=== PATIENT | male | born 1950 | race Caucasian/White ===

== ENCOUNTER 2016-07-24 00:34 | Emergency (ER) | payer MEDICARE, OTHER ==
[~2016-07-24] VITALS: Ht 182.9 cm; Wt 95.5 kg
[~2016-07-24 00:34] MED LIST: ASPI-973 PO; EZET10TA PO; NITR0.4T SL; OXYC5TAB72 PO; POLY17PO6 PO
[2016-07-24 00:37] VITALS: BP 173/99; PULSE 65; RESP 16; O2SAT 98
--- NOTE | 2016-07-24 00:53 | ED.REPORT ---
HPI-Dental/Mouth Prob Date of Service Jul 24, 2016 ED Provider: Dr. River Kim M.D. A 65 year old male with a medical history including CAD, MO, hypertension, GERD , and renal cell cancer s/p right nephrectomy presents to the ED with upper left tooth pain onset this evening. The pain has spread into his lower jaw. The patient denies dysphagia or other symptoms. He took 800mg of Ibuprofen at onset. The patient was placed on Cipro and Flagyl one week ago for diverticulitis. Nursing Notes Stated Complaint: DENTAL PAIN Chief Complaint: Dental Nursing Notes Reviewed: Yes Allergies: Coded Allergies: niacin (Unverified Allergy, Severe, HIVES,SKIN RASH, 03/27/15) Kmoxujk-Heh-Ems Reductase Inhibitor (Unverified Allergy, Unknown, UNKNIOWN , 03/27/15) hydromorphone (Unverified Allergy, Unknown, UNKNOWN, 03/27/15) ramipril (Unverified Allergy, Unknown, UNKNOWN, 03/27/15) acetaminophen (Unverified Adverse Reaction, Severe, GRINDS TEETH, 03/27/15) hydrocodone (Unverified Adverse Reaction, Severe, GRINDS TEETH, 03/27/15) hydroxyprogesterone (Unverified Adverse Reaction, Severe, HALLUCINATIONS, 03/27/15) Scheduled Amoxicillin (Amoxicillin) 500 Mg Tablet 500 MG PO TID Aspirin (Aspirin) 81 Mg Tablet 81 MG PO DAILY Ezetimibe (Zetia) 10 Mg Tablet 10 MG PO DAILY Polyethylene Glycol 3350 (Miralax) 17 Gm Powd.pack 17 GM PO DAILY Scheduled PRN Ibuprofen (Ibuprofen) 600 Mg Tablet 600 MG PO QID PRN PRN For Pain Nitroglycerin SL (Nitrostat) 0.4 Mg Tab.subl 0.4 MG SL Q5MIN PRN PRN ANGINA Tramadol (Tramadol) 50 Mg Tablet 100 MG PO Q6H PRN PRN For Pain oxyCODONE (oxyCODONE) 5 Mg Tablet 5 MG PO Q4H PRN PRN For Moderate Pain General Time Seen by MD: 00:53 Chief Complaint Tooth pain Hx Obtained From: Patient Arrived By: Walk-in Onset Occurred: 5 - 8 hours ago Symptom Duration: Since onset Location: : Tooth upper L bicuspid Quality: Painful Severity: Current: Moderate Severity: Maximum: Moderate Associated with: Denies: Fever Pertinent Negative: Relieved by nothing Recent Healthcare: No recent doctor visit Past Medical History Past Medical History Hx MO CAD Hypertension Heart Murmur GERD Mccallum's esophagus Right renal cell cancer Inguinal hernia Osteoarthritis Diverticulitis Past Surgical History Cholecystectomy Laparoscopic right nephrecomy Knee scopes CABG 2000 Right inguinal hernia repair with mesh 2014 Smoking History Current Every Day Smoker Ambulatory Status Independent Review of Systems Review of Systems Note: + Left-sided jaw pain Constitutional: Denies: Fever Ears / Nose / Throat: Reports: Toothache (Upper left ) Respiratory: Denies: Non-productive cough, Shortness of breath GI: Denies: Constipation, Diarrhea, Dysphagia, Vomiting Complete sys rev & neg: except as marked. Physical Exam Initial Vital Signs Vital Signs (First) Date Time Temp Pulse Resp B/P Pulse Ox O2 Delivery O2 Flow Rate FiO2 07/24/16 00:37 36.4 65 16 173/99 98 Room Air Initial VS: Reviewed Head / Eyes: Atraumatic, Normocephalic Respiratory: No respiratory distress Skin: Warm, Dry, No cyanosis Neurologic: Alert, Oriented, Nonfocal Psychiatric: Mood/affect normal, Behavior normal, Normal thought content ENT: Airway patent, Mucous membranes moist, Pharynx NL, No peritonsillar abscess Tooth #12 missing Tooth #13 has a full crown with the base eroded and decay into dentin of tooth Tongue normal No gingival sulcus swelling Neck: Supple, No adenopathy No flunctuance General/Constitutional: Awake, Alert, No acute distress Re-Eval/Medical Decision Med Decision/Clinical Course 65-year-old presents with dental pain with obvious decay underlying on tooth #19. He is begun with amoxicillin, as Flagyl, which she is currently taking, is probably inadequate for oral anaerobes. Ibuprofen, tramadol, and follow-up with dentist [facility]. Source of Hx: Old records Re-Evaluation/Progress : Time of Eval: 01:15 Patient Status: Condition improved Re-Evaluation/Progress Note: Discussed with patient physical exam findings, diagnosis, and plan for discharge. Follow-up and return to the ER instructions given. Patient agrees with plan for care and all questions were addressed. Counseled Regarding: Diagnosis, Need for follow-up, When/why to return to ED Discharge & Departure Shift Change Sign-Out Response to Therapy: Improved Primary Impression: Toothache Additional Impression: Dental abscess Disposition: Home Discharge Condition All VS Reviewed: Yes Condition: Improved Patient Instructions: Dental Abscess (ED) Additional Instructions: Continue ibuprofen 800 mg three times daily. You may add tramadol two tablets up to four times daily. Never exceed eight tablets of tramadol daily. Add amoxicillin one tablet three times daily. See your dentist as soon as possible. Return if you develop fever, difficulty swallowing, or other new symptoms of concern. Referrals: Dada Tapia MD (PCP) Scribe Attestation Portions of this note were transcribed by Yvette Landis. I, Dr. Kim, personally performed the history, physical exam, and medical decision-making; I reviewed and confirmed the accuracy of the information in the transcribed note. Signed by: Caesar Gong, 07/24/2016, 01:25 copies to: Dada Tapia MD, Christopher W MD Jul 24, 2016 00:53 YVETTE LANDIS Jul 24, 2016 01:09
[2016-07-24] MEDS ORDERED: Ketorolac 30 mg/mL 2 mL Inj IM ONE (01:00)
[2016-07-24] MEDS ORDERED: AMOX500T2 PO (01:02)
[2016-07-24] MEDS ORDERED: TRAM50TA2 PO (01:03)
[2016-07-24] MEDS ORDERED: IBUP-1827 PO (01:12)
[2016-07-24 01:30] VITALS: BP 165/90; PULSE 62; RESP 18; O2SAT 99
== END 2016-07-24 01:30 | disposition home or self-care (01) ==
LOC: SED 00:34
DX: K08.89 Other specified disorders of teeth and supporting structures (principal); K04.7 Periapical abscess without sinus; I25.10 Atherosclerotic heart disease of native coronary artery without angina pectoris; I25.2 Old myocardial infarction; K21.9 Gastro-esophageal reflux disease without esophagitis; F17.200 Nicotine dependence, unspecified, uncomplicated; Z79.82 Long term (current) use of aspirin; Z85.528 Personal history of other malignant neoplasm of kidney; Z88.5 Allergy status to narcotic agent; Z88.8 Allergy status to other drugs, medicaments and biological substances
CPT/HCPCS: 96372; 99283; J1885

== ENCOUNTER 2016-09-22 08:18 | Day surgery (SDC) | payer OTHER ==
[~2016-09-22] VITALS: Ht 182.9 cm; Wt 99.0 kg
[~2016-09-22 08:18] MED LIST changes: +Dexamethasone 4 mg/mL Inj IVPUSH PRN; +EPHEDrine Sulfate 50 mg/mL Inj IVPUSH PRN; +HYDROmorphone 1 mg/mL Inj IVPUSH PRN; +Labetalol 5 mg/mL 4 mL Inj IV PRN; +Lactated Ringer's 1,000 ML IV ONE; +Lactated Ringer's 1,000 ML IV SCH; +Lactated Ringer's 500 ML IV PRN; +MetoCLOpramide 5 mg/mL 2 mL Inj IVPUSH PRN; -NITR0.4T SL; -OXYC5TAB72 PO; +Ondansetron 2 mg/mL 2 mL Inj IVPUSH PRN; -POLY17PO6 PO; +Phenylephrine 10,000 mCg/mL Inj IVPUSH PRN; +fentaNYL-PF 50 mCg/mL 2 mL Inj IVPUSH PRN; +hydrALAZINE 20 mg/mL Inj IVPUSH PRN
[2016-09-22] MEDS ORDERED: Propofol 10,000 mCg/mL 20 mL Inj ONE (08:19)
[2016-09-22] MEDS ORDERED: fentaNYL-PF 50 mCg/mL 2 mL Inj ONE (08:19)
[2016-09-22] MEDS ORDERED: Ketamine 10 mg/mL 20 mL Inj ONE (08:19)
[2016-09-22 08:52] VITALS: BP 127/80; PULSE 65; RESP 12; O2SAT 98
[2016-09-22] MEDS ORDERED: Lactated Ringer's 1,000 ML IV ONE (09:38)
--- NOTE | 2016-09-22 09:56 | PCM.HPANE ---
Patient Data Date of Service: September 22, 2016 Surgeon Admitting Provider: Attending Provider:Rosa Armstrong MD Primary Care Physician:Dada Tapia MD Other Provider:Filemon Matthews Anesthesia Reason for Visit Chronic Diarrha, Weight Loss Ht/WT & BMI Height (Feet): 6 Height (Inches): 0 Weight (Kilograms): 99 Body Mass Index 29.00 Allergies Coded Allergies: niacin (Verified Allergy, Mild, hives, 09/21/16) hydromorphone (Verified Allergy, Unknown, 09/22/16) Past Anesthesia History Anesthesia History: Denies:: Anesthesia Reactions, Fam Anesthesia Reaction, Fam Malignant Hypertherm, Malignant Hyperthermia Diabetes History Hx Diabetes?: No MRSA MRSA: No Medications Blood Thinner: Aspirin Discontinued Reported Medications Ezetimibe (Zetia)10 Mg [id number] Mg PO DAILY 30 Days Ref 0 03/27/15 Aspirin 81 Mg Pywltv45 Mg PO DAILY Ref 0 03/27/15 Nitroglycerin SL (Nitrostat)0.4 Mg Tab.subl0.4 Mg SL Q5MIN PRN ANGINA #1 BOTTLE 03/27/15 Discontinued Scripts Ibuprofen 600 Mg [id number] Mg PO QID PRN For Pain #40 TABLET Prov:River Kim MD 07/24/16 Tramadol 50 Mg [id number] Mg PO Q6H PRN For Pain #20 TABLET Prov:River Kim MD 07/24/16 Amoxicillin 500 Mg [id number] Mg PO TID #60 TABLET Prov:River Kim MD 07/24/16 Polyethylene Glycol 3350 (Miralax)17 Gm Powd.pack17 Gm PO DAILY #30 Prov:Jesus Calderón MD 03/31/15 oxyCODONE 5 Mg Tablet5 Mg PO Q4H PRN For Moderate Pain #30 TABLET Prov:Jesus Calderón MD 03/31/15 History History of ENT Problems?: Yes HEENT History: Denies:: Abnormal Airway Cataracts Difficult Intubation Dysphagia Glaucoma Hearing Problem Sinus Problem TMJ Denture Type: None Teeth Condition: Missing Teeth Hx of Heart Problems?: Yes Cardiovascular History: Positive for:: Cardiac Surgery (CABG AROUND 1999) Chest Pain (HX NE) Denies:: Congestive Heart Failure Heart Murmur (ECHO 12/2003) Hypertension Irregular Heartbeat Hx of Respiratory Problem?: No Respiratory History: Denies:: Tuberculosis Use of C-PAP Machine Hx Neurologic Problems?: No Neurological History: Denies:: CVA Hx of GI Problems?: Yes Hx of Problems?: Yes Male Hx: Positive for:: Prostate Problems (BPH) Denies:: Scrotal Mass Testicular Surgery Skin History: Denies:: History Skin Disorders? Pressure Ulcers Hx Musculoskeletal Problems?: Yes Musculoskeletal History: Positive for:: Musculoskeletal Trauma (S/P MULTIPLE KNEE SCOPES) Hx of Psycho/Social Problems?: No Hx Surgeries?: Yes (CABG X4, CHOLY, KIDNEY RESECTION, BILAT KNEES, ) Hx Any Other Health Problems?: No Other History: Positive for:: Cancer (RT RENAL CELL) Hospitalization (CARDIAC) Thyroid Disease (NO MEDS) Denies:: Endocrine Disease History Blood Transfusions: Denies:: Blood Transfusions Hx Diabetes: No Hx Alcohol Use: Yes (3-4/WEEK)Hx Substance Use: No Smoking Status: Current Every Day Smoker Have You Smoked inLast 12 mo: Yes (CIGARS) Stop/Bang Treated for Sleep Apnea?: No S-Snoring: Do You Snore Loudly: Yes T-Tired: feel tired, fatigued: No O-Obsered: Observed not breath: No P-Blood Pressure: treated: No B- Body Mass Index > 35 kg/m2: No A- Age over 50: Yes N- Neck Large Circumference: No G- Gender Male: Yes NICK Total Score: 3 NICK Risk Assessment: Low Risk, <3 Yes Risk Assessment Category Category 1A: Patient has history of documented sleep apnea, and HAS NOT received any narcotic, sedative or anesthesia administration during this stay. Category 1B: Patient has history of documented sleep apnea, and HAS received any narcotic , sedative or anesthesia administration during this stay Category 2: Patient has SUSPECTED Obstructive Sleep Apnea, and HAS received any narcotic , sedative or anesthesia administration during this stay. Category 3: Patient has SUSPECTED Obstructive Sleep Apnea and HAS NOT received narcotic, sedative or anesthesia administration during this stay. Category 4: Outpatient in Procedural Areas with known sleep apnea or who screen positive for High Risk via the STOP/BANG questionnaire. Exam Exam Vital Signs Vital Signs Date Time Temp Pulse Resp B/P Pulse Ox O2 Delivery O2 Flow Rate FiO2 09/22/16 08:52 36.4 65 12 127/80 98 Room Air General Appearance: Alert, Oriented X3, Cooperative, No Acute Distress HEENT/AIRWAY: MP 2 Lungs: Clear to Auscultation, Normal Air Movement Heart: Exam Unremarkable, Regular Rate/Rhythm, No Murmurs/Rubs/Gallops Meds/Labs/Diagnostics Admission Meds Current Medications Lactated Ringer's (Lr) 1,000 ml @ ud STK-MED ONCE IV Last administered on t 09:38; Start 09/22/16 at 09:38; Stop 09/22/16 at 09:39; Status DC Plan Impression Patient chart reviewed, patient interviewed and anesthestic plan with risks, benefits, and alternatives discussed, and informed consent obtained. ASA Physical Status: ASA2 Mod Systemic Disease Anesthetic Plan: GA Bene/Risks/Altern/Consents: Yes HP Complete Prior to Induction: Yes Zen Amador MD September 22, 2016 09:56
[2016-09-22 10:48] VITALS: BP 77/56; PULSE 95; RESP 16; O2SAT 95
[2016-09-22 10:51] VITALS: BP 86/45; PULSE 57; RESP 16; O2SAT 94
[2016-09-22 11:05] VITALS: BP 128/67; PULSE 53; RESP 16; O2SAT 98
[2016-09-22 11:07] VITALS: BP 133/80; PULSE 56; RESP 16; O2SAT 100
--- NOTE | 2016-09-22 11:10 | ENDO ---
[address] [address] ENDOSCOPY PROCEDURE PATIENT: JERMAINE TOMLINSON : 1950 MR#: [id number] ADMIT: 09/22/2016 JOB ID: [id number] DATE: 09/22/2016 PROCEDURE: Esophagogastroduodenoscopy. INDICATION: Weight loss and chronic diarrhea. The patient's ASA classification, Mallampati score and medications as per anesthesia note. INSTRUMENT USED: GIF H 180 J. PROCEDURE DETAILS: After informed consent was obtained, the patient was brought into the GI suite, where he was placed on oxygen via nasal cannula and monitored with continuous pulse oximeter, telemetry and blood pressure monitoring. A time-out was performed and then he was placed in the left lateral decubitus position and medications were administered for sedation. A bite block was placed. The standard EGD scope was inserted through the bite block and advanced under direct visualization to the second portion of the duodenum without difficulty. FINDINGS: 1. Normal-appearing duodenal bulb, first and second portion. Multiple random biopsies were obtained. 2. Normal appearing pylorus. In the antrum and body of the stomach, the mucosa had a mildly erythematous appearance. Multiple random biopsies were obtained. 3. Retroflexed views in the gastric body revealed a normal appearing cardia and fundus. 4. The GE junction coincided with the top of the gastric folds at 44 cm. There was salmon-colored mucosa extending up to 41 cm from the GE junction. Several tongues. Multiple biopsies were obtained. The remainder of the esophagus otherwise unremarkable. IMPRESSION: 1. Mild gastritis. 2. C0 M3 Mccallum esophagus. RECOMMENDATIONS: 1. Start PPI. 2. Smoking cessation. 3. I recommend decreasing alcohol intake. COMPLICATIONS: None. ESTIMATED BLOOD LOSS: Less than 5 mL. PROCEDURE PERFORMED: Colonoscopy. INDICATION: Chronic diarrhea and weight loss. Please see above for ASA classification, Mallampati score and medications. INSTRUMENT USED: PCF H 180 AL. PREPARATION QUALITY: Was fair. PROCEDURE DETAILS: After completion of the EGD examination, the patient was turned and then a digital rectal examination was performed with palpation of the prostate was unremarkable. The colonoscope was then inserted into the rectum and advanced under direct visualization to the terminal ileum which was identified by the presence of the ileocecal valve and villous appearing mucosa of the terminal ileum. Once the terminal ileum was reached, the colonoscope was withdrawn back into the rectum and mucosa and lumen were examined. In the rectum, retroflexion was performed. Following retroflexion, remaining air in the rectum was suctioned, and the procedure was completed. FINDINGS: 1. Normal appearing terminal ileum. Multiple random biopsies were obtained. 2. In the descending colon, there was an approximately 5 mm sessile polyp that was removed with a cold snare. 3. In the rectum there was an approximately 7 mm sessile polyp that was removed with a hot snare. 4. Multiple random biopsies were obtained throughout the colon. 5. The colon mucosa appeared normal from rectum to cecum. IMPRESSION: 1. Descending colon polyp. 2. Rectal polyp. Otherwise normal examination from rectum to terminal ileum. RECOMMENDATIONS: 1. Await biopsy results. 2. Avoid nonsteroidal anti-inflammatory drugs and anticoagulants for 72 hours. 3. Followup in GI clinic. COMPLICATIONS: None. ESTIMATED BLOOD LOSS: Less than 5 mL.
--- NOTE | 2016-09-22 14:01 | PCM.ANEP1 ---
Post Anesthesia Phase 1 PACU Phase 1 Assessment Date of Service: September 22, 2016 Vital Signs Vital Signs Date Time Temp Pulse Resp B/P Pulse Ox O2 Delivery O2 Flow Rate FiO2 09/22/16 11:07 56 16 133/80 100 Room Air 09/22/16 11:05 53 16 128/67 98 Room Air 09/22/16 10:51 57 16 86/45 94 Room Air 09/22/16 10:48 35.8 95 16 77/56 95 Room Air 09/22/16 08:52 36.4 65 12 127/80 98 Room Air Anesthetic Administered: GA Level of Alertness: Awake, talking Pain: No Nausea or Vomiting: No Cardiovascular Function and Hy: Yes Oxygen Delivery: Room Air Lungs: Clear to Auscultation, Normal Air Movement Complications: No Zen Amador MD September 22, 2016 14:01
--- NOTE | 2016-09-24 17:25 | PATH ---
SURGICAL PATHOLOGY Attending Physician:Tia Howard CASE STATUS: Signed Out PATIENT NAME: JERMAINE TOMLINSON PID: [id number] : 1950 DATE COLLECTED:09/22/2016 15:11 SPECIMEN: 1: Duodenum, Biopsy 2: Stomach, Polyp, Biopsy 3: Esophagus, Biopsy 4: Ileum, Biopsy 5: Colon, Biopsy 6: Colon, Biopsy 7: Rectum, Biopsy CLINICAL HISTORY: 1. DUODENAL BX 2. RANDOM GASTRIC BX 3. DISTAL ESOPHAGUS BX 4. TI BX 5. RANDOM COLON BX 6. DESCENDING COLON POLYP 7. RECTAL POLYP X1 FINAL DIAGNOSIS: 1. Duodenum, Biopsy: Duodenal mucosa with no diagnostic abnormality. Negative for active inflammation, features of sprue, dysplasia, or malignancy. 2. Random Gastric Biopsy: Portions of gastric body-type mucosa with no diagnostic abnormality. Negative for H. pylori organisms by H&E stain. Negative for dysplasia and malignancy. 3. Distal Esophageal Biopsy: Squamocolumnar junctional mucosa with a small focus of specialized intestinal metaplasia. Negative for dysplasia and malignancy. 4. Terminal Ileum, Biopsy: Small intestinal mucosa with no diagnostic abnormality. Negative for active inflammation, dysplasia, and malignancy. 5. Random Colon Biopsies: Histologic features of lymphocytic colitis. Please see comment. 6. Descending Colon, Polyp, Biopsy: Tubular adenoma; negative for high-grade dysplasia. 7. Rectum, Polyp, Biopsy: Superficial portions of colorectal mucosa histologic features suggestive of lymphocytic colitis. Please see comment. ICD10: K52.89 NOTE: E and G. Sections demonstrate superficial portions of colorectal mucosa with increased intraepithelial lymphocytes (up to approximately 20 lymphocytes / 100 epithelial cells). There is no evidence of active inflammation, dysplasia, or malignancy. GROSS DESCRIPTION: The specimen is received in seven formalin filled containers labeled with the patient's name. 1). The specimen is sublabeled "duodenal" and consists of 3 portions of tissue which aggregate to 0.2 x 0.2 x 0.2 CM. The specimen is entirely submitted in cassette 1A. 2). The specimen is sublabeled "gastric" and consists of 4 portions of tissue which aggregate to 0.4 x 0.4 x 0.2 CM. The specimen is entirely submitted in cassette 2A. 3). The specimen is sublabeled "distal esophageal" and consists of multiple portions of tissue which aggregate to 0.4 x 0.4 x 0.3 CM. The specimen is entirely submitted in cassette 3A. 4). The specimen is sublabeled " TI " and consists of portions of tissue which aggregate to 0.3 x 0.3 x 0.2 CM. The specimen is entirely submitted in cassette 4A. 5). The specimen is sublabeled "random colon" and consists of multiple portions of tissue which aggregate to 0.4 x 0.4 x 0.3 CM. The specimen is entirely submitted in cassette 5A. 6). The specimen is sublabeled "descending colon polyp" and consists of a 0.6 x 0.5 x 0.4 CM portion of tissue which is entirely submitted in cassette 6A. 7). The specimen is sublabeled "rectal polyp" and consists of 4 portions of tissue which aggregate to 0.3 x 0.3 x 0.2 CM. The specimen is entirely submitted in cassette 7A. 09/22/2016 [facility] ICD-9 CODES: CPT CODES: 1: 45645 2: 64823 3: 37318 4: 35648 5: 31886 6: 59705 7: 77834 Electronically Signed Out Jacqueline Newby MD [facility], [place] [address] Technical component performed at [facility], [facility] [address], [address]
== END 2016-09-22 23:59 | disposition home or self-care (01) ==
LOC: END 08:18
PROVIDERS: ATTEND Internal Medicine Gastroenterology
DX: K52.89 Other specified noninfective gastroenteritis and colitis (principal); D12.4 Benign neoplasm of descending colon; K62.1 Rectal polyp; R63.4 Abnormal weight loss; R19.7 Diarrhea, unspecified; R10.9 Unspecified abdominal pain; I10 Essential (primary) hypertension; I25.10 Atherosclerotic heart disease of native coronary artery without angina pectoris; F17.210 Nicotine dependence, cigarettes, uncomplicated; N40.0 Benign prostatic hyperplasia without lower urinary tract symptoms; I25.2 Old myocardial infarction; Z96.653 Presence of artificial knee joint, bilateral; Z85.528 Personal history of other malignant neoplasm of kidney; Z95.5 Presence of coronary angioplasty implant and graft; Z79.82 Long term (current) use of aspirin; Z68.29 Body mass index [BMI] 29.0-29.9, adult
CPT/HCPCS: 43239; 45380; 45385; J3010; J7120